=== PATIENT | male | born 1990 | race Caucasian/White ===

== ENCOUNTER 2016-08-22 21:53 | Emergency (ER) | payer OTHER ==
[~2016-08-22] VITALS: Ht 175.3 cm; Wt 117.1 kg
[~2016-08-22 21:53] MED LIST: AMOX500T PO; IBUP800T23 PO; METH750T2 PO; MONT10TA2 PO; NAPR-576 PO; PROZ20CA11 PO
[2016-08-22 22:01] VITALS: BP 139/84; PULSE 88; RESP 18; TEMP 98.3; O2SAT 98
[2016-08-22] MEDS ORDERED: ALBUAER3 INH ×2 (22:10→23:08)
--- NOTE | 2016-08-22 22:32 | PD ---
HPI Chief Complaint: Cold / Flu Symptoms Time Seen by Provider: 22:32 Travel History International Travel<30 days: No Contact w/Intl Traveler<30days: No Traveled to known affect area: No History of Present Illness HPI 26-year-old male with PMH of asthma and GERD presents to the ED for evaluation of 1 week history of nonproductive cough, wheezing, chest tightness. Gradual onset. Patient denies fever, chills, ear pain, sinus congestion, sore throat, abdominal pain, nausea or vomiting. He denies chest pain, diaphoresis, shortness of breath. He does not smoke. He's been treating at home with daily albuterol treatments and rescue inhaler with no improvement of symptoms. Endorses compliant with daily Prilosec. PFSH Past Medical History Hx Anticoagulant Therapy: No Asthma: Yes Depression: Yes Cardiovascular Problems: No Chemotherapy: No Cerebrovascular Accident: No Diabetes: No Diminished Hearing: No Respiratory: Yes (ASTHMA) Integumentary: Yes (PSORIASIS/ECZEMA) Immunizations Current: Yes Tetanus Vaccination: < 5 Years Influenza Vaccination: No Past Surgical History Hysterectomy: No Other Surgery: Yes (RT THUMB SURGERY) Social History Alcohol Use: No Tobacco Use: No Substance Use: No Allergies-Medications (Allergen,Severity, Reaction): Coded Allergies: [place] (Verified Allergy, Unknown, 08/22/16) [place] (Verified Allergy, Unknown, RASH, 08/22/16) Reported Meds & Prescriptions Reported Meds & Active Scripts Active Proair Hfa 8.5 GM Inh (Albuterol Sulfate) 90 Mcg/Act Aer 2 Puff INH Q4-6H PRN 108 mcg/actuation Prednisone 20 Mg Tab 40 Mg PO DAILY Take 40 mg (2 tablets) daily for 5 days Review of Systems Except as stated in HPI: all other systems reviewed are Neg Physical Exam Narrative GENERAL: Well-nourished, well-developed white male in no acute distress. SKIN: Focused skin assessment warm/dry. HEAD: Normocephalic. EYES: No scleral icterus. No injection or drainage. ENT: Pearly pascual tympanic membranes bilaterally. Oropharynx without erythema, edema or exudate. NECK: Supple, trachea midline. No JVD or lymphadenopathy. CARDIOVASCULAR: Regular rate and rhythm without murmurs, gallops, or rubs. RESPIRATORY: Breath sounds equal bilaterally. No accessory muscle use. No wheezing. Rales. No rhonchi. Breath sounds tight, not much air moving. GASTROINTESTINAL: Abdomen soft, non-tender, nondistended. Active bowel sounds. MUSCULOSKELETAL: No cyanosis, or edema. Patient is able to trim his extremities spontaneously. BACK: Nontender without obvious deformity. No CVA tenderness. Data Data Last Documented VS Vital Signs Date Time Temp Pulse Resp B/P Pulse Ox O2 Delivery O2 Flow Rate FiO2 08/22/16 22:11 98 Room Air 08/22/16 22:10 08/22/16 22:01 98.3 88 18 Orders Albuterol-Ipratropium Neb (Duoneb Neb) (08/22/16 22:45) Dexamethasone Inj (Decadron Inj) (08/22/16 22:45) MDM Medical Decision Making Medical Screen Exam Complete: Yes Emergency Medical Condition: Yes Differential Diagnosis Abdomen exacerbation versus viral syndrome versus influenza versus pneumonia versus GERD versus other Narrative Course 26-year-old male with PMH of asthma presents to the ED for evaluation of 1 week history of nonproductive cough, wheezing, chest tightness. Gradual onset. Patient denies fever, chills, ear pain, sinus congestion, sore throat, abdominal pain, nausea or vomiting. He denies chest pain, diaphoresis, shortness of breath. He does not smoke. Vitals reviewed. Physical exam reveals a nontoxic appearing white male in no acute distress. ENT exam is unremarkable. Breath sounds equal bilaterally. No wheezing. No rales. No rhonchi. Patient was administered IM dexamethasone, duo nebs 3. Recheck reveals improvement of symptoms. Breath sounds more open, more air moving on recheck. Patient asked for and received a refill of his pro-air inhaler. Patient was provided a course of steroids, begin tomorrow. He is instructed to continue with at home treatment, follow up with his primary care provider. He indicated understanding of instructions and is agreeable to the plan of care. He is stable and discharged home. Diagnosis Primary Impression: Asthma exacerbation Additional Impression: Cough Referrals: Primary Care Physician Patient Instructions: Asthma (ED), General Instructions Additional Instructions: Rest, hydrate. Begin taking steroids tomorrow. Continue with at home treatments. Follow-up with your primary care provider. Return to the ED for any urgent or emergent medical condition. Med/Other Pt SpecificInfo: Prescription(s) given Scripts Albuterol 8.5 GM Inh (Proair Hfa 8.5 GM Inh)90 Mcg/Act Aer2 Puff INH Q4-6H PRN ( SHORTNESS OF BREATH) #1 INHALER Ref 0 108 mcg/actuation Prov:Helga Benson MD 08/22/16 Prednisone 20 Mg Tab40 Mg PO DAILY #10 TAB Ref 0 Take 40 mg (2 tablets) daily for 5 days Prov:Helga Benson MD 08/22/16 Disposition: 01 DISCHARGE HOME Condition: Stable Ena Redd Aug 22, 2016 22:32 Ena Redd Aug 22, 2016 22:32
[2016-08-22] MEDS ORDERED: DEXAMETHASONE SOD PHOS 4 MG/ML VIAL IM ONE (22:45)
[2016-08-22] MEDS: RESP: ALBUTEROL 2.5 MG/IPRATROPIUM 0.5 MG NEB (SCH) INH ×2 (22:46→22:47)
[2016-08-22] MEDS ORDERED: PRED20 PO (22:47)
[2016-08-22 23:30] VITALS: BP 132/84
== END 2016-08-22 23:32 | disposition home or self-care (01) ==
LOC: PHEFT 21:53
DX: J45.901 Unspecified asthma with (acute) exacerbation (principal); L40.9 Psoriasis, unspecified; L30.9 Dermatitis, unspecified
CPT/HCPCS: 94640; 94664; 96372; 99283; J1100